=== PATIENT | male | born 1985 | race Caucasian/White ===

== ENCOUNTER 2017-02-11 02:33 | Emergency (ER) | payer OTHER ==
[~2017-02-11] VITALS: Ht 165.1 cm; Wt 119.5 kg
[2017-02-11 02:43] VITALS: Ht 165.1 cm; Wt 119.5 kg
[2017-02-11 06:19] VITALS: BP 136/82
== END 2017-02-11 06:19 | disposition home or self-care (01) ==
LOC: ED 02:33
DX: J40 Bronchitis, not specified as acute or chronic (principal); K08.89 Other specified disorders of teeth and supporting structures; F17.210 Nicotine dependence, cigarettes, uncomplicated; Z71.6 Tobacco abuse counseling
CPT/HCPCS: 99406

== ENCOUNTER 2017-02-20 00:22 | Emergency (ER) | payer OTHER ==
[2017-02-20 04:22] VITALS: BP 122/88
== END 2017-02-20 04:22 | disposition home or self-care (01) ==
LOC: ED 00:22
DX: J09.X2 Influenza due to identified novel influenza A virus with other respiratory manifestations (principal)
CPT/HCPCS: 87804; J7613

== ENCOUNTER 2017-06-22 21:00 | Emergency (ER) | payer OTHER ==
[~2017-06-22] VITALS: Ht 165.1 cm; Wt 118.8 kg
[2017-06-22 21:05] VITALS: Ht 165.1 cm; Wt 118.8 kg
[2017-06-23 00:20] VITALS: BP 135/75
== END 2017-06-23 00:20 | disposition home or self-care (01) ==
LOC: ED 21:00
DX: S01.511A Laceration without foreign body of lip, initial encounter (principal); X58.XXXA Exposure to other specified factors, initial encounter; Y93.89 Activity, other specified; Y92.89 Other specified places as the place of occurrence of the external cause; Y99.8 Other external cause status
CPT/HCPCS: 90715; J0690; J1885; J2001

== ENCOUNTER 2017-07-28 06:16 | Emergency (ER) | payer OTHER ==
[~2017-07-28] VITALS: Ht 165.1 cm; Wt 112.5 kg
[2017-07-28 06:20] VITALS: Ht 165.1 cm; Wt 112.5 kg
[2017-07-28 08:22] VITALS: BP 138/75
== END 2017-07-28 08:22 | disposition home or self-care (01) ==
LOC: ED 06:16
DX: K12.2 Cellulitis and abscess of mouth (principal); Z20.818 Contact with and (suspected) exposure to other bacterial communicable diseases